=== PATIENT | female | born 1945 | race Caucasian/White ===

== ENCOUNTER 2021-04-24 09:59 | Outpatient (CLI) | payer MEDICARE, BC | END 2021-04-24 10:00 | disposition home or self-care (01) | LOC: CSHWCC 09:59 | PROVIDERS: ATTEND Nurse Practitioner Family | DX: E11.621 Type 2 diabetes mellitus with foot ulcer (principal); L97.422 Non-pressure chronic ulcer of left heel and midfoot with fat layer exposed; L97.521 Non-pressure chronic ulcer of other part of left foot limited to breakdown of skin; E11.51 Type 2 diabetes mellitus with diabetic peripheral angiopathy without gangrene; I70.203 Unspecified atherosclerosis of native arteries of extremities, bilateral legs; B35.3 Tinea pedis; B96.89 Other specified bacterial agents as the cause of diseases classified elsewhere; E11.40 Type 2 diabetes mellitus with diabetic neuropathy, unspecified; E78.2 Mixed hyperlipidemia; M20.42 Other hammer toe(s) (acquired), left foot; I10 Essential (primary) hypertension | CPT/HCPCS: 11042; 97139; G0463; 99203 ==

== ENCOUNTER 2021-04-28 07:59 | Outpatient (CLI) | payer MEDICARE, BC | END 2021-04-28 08:00 | disposition home or self-care (01) | LOC: CSHWCC 07:59 | PROVIDERS: ATTEND Nurse Practitioner Family | DX: E11.621 Type 2 diabetes mellitus with foot ulcer (principal); B35.3 Tinea pedis; B96.89 Other specified bacterial agents as the cause of diseases classified elsewhere; E11.40 Type 2 diabetes mellitus with diabetic neuropathy, unspecified; L97.422 Non-pressure chronic ulcer of left heel and midfoot with fat layer exposed; L97.521 Non-pressure chronic ulcer of other part of left foot limited to breakdown of skin; E78.2 Mixed hyperlipidemia; I10 Essential (primary) hypertension; I70.203 Unspecified atherosclerosis of native arteries of extremities, bilateral legs; M20.42 Other hammer toe(s) (acquired), left foot | CPT/HCPCS: 29445 ==

== ENCOUNTER 2021-05-01 08:26 | Outpatient (CLI) | payer MEDICARE, BC | END 2021-05-01 08:27 | disposition home or self-care (01) | LOC: CSHWCC 08:26 | PROVIDERS: ATTEND Nurse Practitioner Family | DX: E11.621 Type 2 diabetes mellitus with foot ulcer (principal); L97.422 Non-pressure chronic ulcer of left heel and midfoot with fat layer exposed; L97.521 Non-pressure chronic ulcer of other part of left foot limited to breakdown of skin; E11.51 Type 2 diabetes mellitus with diabetic peripheral angiopathy without gangrene; I70.203 Unspecified atherosclerosis of native arteries of extremities, bilateral legs; E11.40 Type 2 diabetes mellitus with diabetic neuropathy, unspecified; B35.3 Tinea pedis; B96.89 Other specified bacterial agents as the cause of diseases classified elsewhere; E78.2 Mixed hyperlipidemia; M20.42 Other hammer toe(s) (acquired), left foot; I10 Essential (primary) hypertension ==

== ENCOUNTER 2021-05-08 09:48 | Outpatient (CLI) | payer MEDICARE, BC | END 2021-05-08 09:49 | disposition home or self-care (01) | LOC: CSHWCC 09:48 | PROVIDERS: ATTEND Nurse Practitioner Family | DX: E11.621 Type 2 diabetes mellitus with foot ulcer (principal); L97.521 Non-pressure chronic ulcer of other part of left foot limited to breakdown of skin; E11.51 Type 2 diabetes mellitus with diabetic peripheral angiopathy without gangrene; I70.203 Unspecified atherosclerosis of native arteries of extremities, bilateral legs; E11.40 Type 2 diabetes mellitus with diabetic neuropathy, unspecified; M20.42 Other hammer toe(s) (acquired), left foot; B96.89 Other specified bacterial agents as the cause of diseases classified elsewhere; B35.3 Tinea pedis; E78.2 Mixed hyperlipidemia; I10 Essential (primary) hypertension | CPT/HCPCS: 29445; 97139; G0463; 99213 ==

== ENCOUNTER 2021-05-15 08:16 | Outpatient (CLI) | payer MEDICARE, BC | END 2021-05-15 08:17 | disposition home or self-care (01) | LOC: CSHWCC 08:16 | PROVIDERS: ATTEND Nurse Practitioner Family | DX: E11.621 Type 2 diabetes mellitus with foot ulcer (principal); L97.422 Non-pressure chronic ulcer of left heel and midfoot with fat layer exposed; L97.521 Non-pressure chronic ulcer of other part of left foot limited to breakdown of skin; E11.40 Type 2 diabetes mellitus with diabetic neuropathy, unspecified; B35.3 Tinea pedis; B96.89 Other specified bacterial agents as the cause of diseases classified elsewhere; I10 Essential (primary) hypertension; I70.203 Unspecified atherosclerosis of native arteries of extremities, bilateral legs; M20.42 Other hammer toe(s) (acquired), left foot | CPT/HCPCS: 29445; 99213; G0463 ==

== ENCOUNTER 2021-05-20 07:40 | Outpatient (CLI) | payer MEDICARE, BC | END 2021-05-20 07:41 | disposition home or self-care (01) | LOC: CSHWCC 07:40 | PROVIDERS: ATTEND Nurse Practitioner Family | DX: I87.331 Chronic venous hypertension (idiopathic) with ulcer and inflammation of right lower extremity (principal); I87.2 Venous insufficiency (chronic) (peripheral); E11.621 Type 2 diabetes mellitus with foot ulcer; E11.40 Type 2 diabetes mellitus with diabetic neuropathy, unspecified; E11.51 Type 2 diabetes mellitus with diabetic peripheral angiopathy without gangrene; L97.422 Non-pressure chronic ulcer of left heel and midfoot with fat layer exposed; L97.521 Non-pressure chronic ulcer of other part of left foot limited to breakdown of skin; L97.312 Non-pressure chronic ulcer of right ankle with fat layer exposed; B96.89 Other specified bacterial agents as the cause of diseases classified elsewhere; I70.203 Unspecified atherosclerosis of native arteries of extremities, bilateral legs; B35.3 Tinea pedis; E78.2 Mixed hyperlipidemia; M20.42 Other hammer toe(s) (acquired), left foot; R60.0 Localized edema ==

== ENCOUNTER 2021-05-27 08:46 | Outpatient (CLI) | payer MEDICARE, BC | END 2021-05-27 08:47 | disposition home or self-care (01) | LOC: CSHWCC 08:46 | PROVIDERS: ATTEND Nurse Practitioner Family | DX: I87.331 Chronic venous hypertension (idiopathic) with ulcer and inflammation of right lower extremity (principal); L97.312 Non-pressure chronic ulcer of right ankle with fat layer exposed; E11.621 Type 2 diabetes mellitus with foot ulcer; L97.422 Non-pressure chronic ulcer of left heel and midfoot with fat layer exposed; L97.521 Non-pressure chronic ulcer of other part of left foot limited to breakdown of skin; R60.0 Localized edema; I87.2 Venous insufficiency (chronic) (peripheral); B35.3 Tinea pedis; B96.89 Other specified bacterial agents as the cause of diseases classified elsewhere; E11.40 Type 2 diabetes mellitus with diabetic neuropathy, unspecified; E78.2 Mixed hyperlipidemia; I10 Essential (primary) hypertension; I70.203 Unspecified atherosclerosis of native arteries of extremities, bilateral legs; M20.42 Other hammer toe(s) (acquired), left foot | CPT/HCPCS: 97139; G0463; 99213 ==

== ENCOUNTER 2021-06-10 10:28 | Outpatient (CLI) | payer MEDICARE, BC | END 2021-06-10 10:29 | disposition home or self-care (01) | LOC: CSHWCC 10:28 | PROVIDERS: ATTEND Nurse Practitioner Family | DX: I87.2 Venous insufficiency (chronic) (peripheral) (principal); E11.621 Type 2 diabetes mellitus with foot ulcer; L97.521 Non-pressure chronic ulcer of other part of left foot limited to breakdown of skin; R60.0 Localized edema; I70.203 Unspecified atherosclerosis of native arteries of extremities, bilateral legs; E11.40 Type 2 diabetes mellitus with diabetic neuropathy, unspecified; B35.3 Tinea pedis; B96.89 Other specified bacterial agents as the cause of diseases classified elsewhere; E78.2 Mixed hyperlipidemia; M20.42 Other hammer toe(s) (acquired), left foot; I10 Essential (primary) hypertension | CPT/HCPCS: 99212; G0463 ==

== ENCOUNTER 2021-11-02 19:28 | Emergency (ER) | payer OTHER, MEDICARE, BC ==
[2021-11-02 20:06] LABS: #Basophils 0.1 10x3/uL (0.0-0.2); #Eosinphils 0.4 10x3/uL (0.0-0.5); #Monocytes 0.7 10x3/uL (0.0-1.1); #Neutrophils 3.2 10x3/uL (1.5-8.4); %Eosinophils 7.2 % (0.0-6.0); %Lymphocytes 26.4 % (18.0-47.0); %Monocytes 11.9 % (0.0-10.0); %Neutrophils 52.8 % (40.0-75.0); Hemoglobin 9.4 g/dL (12.0-15.5); Mean Corpuscular HGB CONC 30.4 g/dL (32.0-36.0); Mean Corpuscular Hemoglobin 23.6 pg (27.0-33.0); Mean Corpuscular Volume 77.4 fl (81.6-98.3); Mean Platelet Volume 11.7 fl (7.4-10.4); Platelet Count 224 10x3/uL (150-450); RBC Distribution Width 18.4 % (11.5-14.5); Red Blood Cell (RBC) Count 3.99 10x6/uL (3.90-5.03); White Blood Cell (WBC) Count 6.1 10x3/uL (3.5-10.5)
[2021-11-02 20:11] LABS: ALT (SGPT) 13 U/L (8-55); AST (SGOT) 15 U/L (5-34); Alkaline Phosphatase 47 U/L (40-110); Anion Gap 16 mmol/L (10-20); BUN (Urea Nitrogen) 23 mg/dL (9.8-20.1); Bilirubin, Total 0.3 mg/dL (0.2-1.2); Calc. Creatinine Clearance 0 mL/min (70-130); Calcium 9.2 mg/dL (7.8-10.44); Carbon Dioxide 23 mmol/L (23-31); Chloride 104 mmol/L (98-107); Globulin 3.1 g/dL (2.4-3.5); Glucose 141 mg/dL (83-110); Potassium 3.7 mmol/L (3.5-5.1); Protein, Total 7.1 g/dL (5.8-8.1); Sodium 139 mmol/L (136-145)
[2021-11-02] MEDS ORDERED: Fentanyl 100 MCG/2 ML VIAL ONE (20:14)
[2021-11-02] MEDS ORDERED: Ketamine 50 MG/ML (10ML VIAL) ONE (21:34)
== END 2021-11-02 23:40 | disposition home or self-care (01) ==
LOC: CSHERS 19:28
DX: S52.501A Unspecified fracture of the lower end of right radius, initial encounter for closed fracture (principal); S52.601A Unspecified fracture of lower end of right ulna, initial encounter for closed fracture; S00.03XA Contusion of scalp, initial encounter; I10 Essential (primary) hypertension; E11.9 Type 2 diabetes mellitus without complications; E78.5 Hyperlipidemia, unspecified; J44.9 Chronic obstructive pulmonary disease, unspecified; H40.9 Unspecified glaucoma; K21.9 Gastro-esophageal reflux disease without esophagitis; W01.198A Fall on same level from slipping, tripping and stumbling with subsequent striking against other object, initial encounter; Z87.891 Personal history of nicotine dependence; Z79.82 Long term (current) use of aspirin; Z79.84 Long term (current) use of oral hypoglycemic drugs; Z79.899 Other long term (current) drug therapy
CPT/HCPCS: 25605; 70450; 70486; 72125; 76377; 80053; 85025; 93005; 96374; 99152; J3010